=== PATIENT | male | born 1970 | race Two or more races ===

== ENCOUNTER 2025-01-06 14:49 | Emergency (ER) | payer OTHER, SELFPAY ==
[2025-01-06 14:52] VITALS: BP 183/103
[2025-01-06 15:07] LABS: % Basophils 0.4 % (0-2); % Eosinophils 0.8 % (0-6); % Immature Granulocytes 0.1 % (0-0.5); % Lymphocytes 40.5 % (20.5-51.1); % Monocytes 8.3 % (1.7-9.3); % Neutrophils 49.9 % (42.2-75.2); Absolute Eosinophils 0.1 10^3/uL (0-0.7); Absolute Lymphocytes 3.1 10^3/uL (1.2-3.4); Absolute Monocytes 0.6 10^3/uL (0.1-0.6); Absolute Neutrophils 3.8 10^3/uL (1.4-6.5); Hematocrit 45.6 % (39.0-52.0); Hemoglobin 16.6 g/dL (13.0-18.0); Mean Corp Hgb Conc. 36.4 g/dL (33.0-37.0); Mean Corpuscular Hgb 31.1 pg (27.0-31.0); Mean Corpuscular Volume 85.4 fL (80.0-94.0); Nucleated Red Blood Cells % 0 % (-); Platelet Count 261 10^3/uL (130-400); Red Blood Cell Count 5.34 10^6/uL (4.70-6.10); Red Cell Dist. Width 11.7 % (11.5-14.5); White Blood Cell Count 7.6 10^3/uL (4.8-10.8)
[2025-01-06 15:22] LABS: ALT (SGPT) 29 U/L (0-50); AST (SGOT) 25 U/L (17-59); Alkaline Phosphatase 53 U/L (38-126); Blood Urea Nitrogen 15 mg/dl (9-20); Calcium 10.3 mg/dl (8.4-10.2); Carbon Dioxide 24 mmol/L (22-30); Chloride 104 mmol/L (98-107); Glucose 108 mg/dl (70-99); Potassium 4.1 mmol/L (3.5-5.1); Sodium 140 mmol/L (135-145); Total Bilirubin 0.7 mg/dl (0.2-1.3); Total Protein 8.4 g/dl (6.3-8.2); eGFR > 60.00
[2025-01-06 15:33] LABS: Troponin I < 0.012 ng/ml
[2025-01-06 15:42] VITALS: BP 140/92
[2025-01-06 15:43] VITALS: BP 140/92
[2025-01-06 16:00] VITALS: BP 126/77
--- NOTE | 2025-01-06 16:20 | ED.GENMED ---
History of Present Illness
General
Chief Complaint: Chest Pain
Source: patient
Exam Limitations: none
Time Seen by Provider: 01/06/25 16:16
Nursing documentation reviewed up to this point in time: agreed with
History of Present Illness
History of Present Illness:
Note:
CHIEF COMPLAINT(S)
Chest pain
HISTORY OF PRESENT ILLNESS
The patient is a 54-year-old male presenting with chest pain that began approximately one hour prior to arrival. The patient describes the sensation as a squeezing feeling in the chest. The episode began an hour prior to arrival. The patient
believes the episode might be related to consuming a strong coffee today, despite being a regular coffee drinker. He reports associated symptoms of a 'fast heartbeat' and feels that stress might have contributed. He denies syncope but agrees to
having had trouble sleeping since a concussion in September. Upon presentation, his blood pressure was initially elevated at 180 mmHg (diastolic not specified), but subsequently normalized to 126/77 mmHg. The patient reports no significant issues
presently but mentions he is tired from lack of sleep.
ADDITIONAL HISTORY OBTAINED FROM SOURCES OTHER THAN THE PATIENT
According to the previous assessment (not specified by whom), the patient�s blood test and heart monitoring results are currently within normal limits, although there is a plan to repeat the blood test.
CHRONIC MEDICAL CONDITIONS SIGNIFICANTLY AFFECTING CARE
Chronic conditions affecting care: Concussion history leading to insomnia.
SOCIAL DETERMINANTS AFFECTING HEALTH
The patient denies smoking, alcohol, or illicit drug use.
MEDICATIONS
The patient reports taking amantadine, which he has exhausted for the last two weeks, potentially contributing to his inability to sleep.
PHYSICAL EXAM
- Nursing notes reviewed and vital signs reviewed.
- General: The patient is afebrile and in no distress.
- Head, Eyes, Ears, Nose, and Throat: Pupils equal, round, and reactive to light.
- Cardiovascular: S1 and S2 heart sounds are normal; no S3, S4, or murmurs detected.
- Respiratory: Lungs are clear bilaterally with no respiratory distress.
- Abdomen: Soft and non-tender.
- Neurological: Cranial nerves II through XII are intact. No abnormalities reported in motor function.
- Extremities: Normal pulses in all extremities; no edema present.
PLAN
Thoughts and considerations include avoiding caffeine due to its potential aggravation of symptoms and recommendation of melatonin (5 mg) as a sleep aid. Monitoring will continue with plans to repeat blood work in approximately one and a half hours.
DIFFERENTIAL DIAGNOSIS
The Differential Diagnosis includes, in no particular order and is not limited to:
1. Acute coronary syndrome
2. Gastroesophageal reflux disease
3. Anxiety/panic attack
4. Atrial fibrillation or other tachyarrhythmias
5. Concussion-related symptoms
6. Hypertension
7. Caffeine-induced palpitations
8. Sleep deprivation-related symptoms
9. Myocarditis
10. Costochondritis
Note:
CARE-UPDATE
01/06/25 - 18:31
Patient remains asymptomatic with improved blood pressure. Test results, including X-ray, are normal, and repeated troponin tests are negative, reducing concerns for ACS or PE. The patient is stable for discharge and will continue follow-up with
primary care. They have received instructions to avoid caffeine and other stimulants as a precaution.
EKG
My independent EKG interpretation is:
- Heart rate: 96 bpm
- Rhythm: Normal sinus rhythm
- Notable interval: Incomplete right bundle branch block
- UT interval: Normal
- QT interval: Normal
- QTC interval: Normal
- [place]: Normal
Disposition:
ASSESSMENT
Atypical chest pain.
DISPOSITION
Discharged home in good condition with instructions to follow up with primary care.
PLAN
Avoid caffeine and other stimulants as a precaution.
MEDICATION RECONCILIATION
Recommendation of melatonin 5 mg as a sleep aid.
MEDICAL DECISION MAKING
1. Number & Complexity of Problems:
- Chronic conditions affecting care: Concussion history.
- Differential diagnoses considered include: Acute coronary syndrome, gastroesophageal reflux disease, anxiety/panic attack, atrial fibrillation or other tachyarrhythmias, concussion-related symptoms, hypertension, caffeine-induced palpitations,
sleep deprivation-related symptoms, myocarditis, and costochondritis.
2. Data Reviewed:
- Labs and imaging were reviewed, ensuring reassuring results (normal X-ray, negative troponin tests) for decision-making on outpatient management.
3. Risk:
- Consideration of admission/observation was made due to the complexity/risk. However, outpatient management is appropriate based on reassuring work-up, stable vitals, symptom control, and follow-up reliability.
PATHOLOGIES TO CONSIDER
- Acute coronary syndrome (chest pain with risk factors)
- Myocarditis (chest pain with possible inflammatory background)
Past History
Past History
ED Past Medical History: None; Negative Asthma, HTN, Hypercholesterolemia or NIDDM
ED Past Surgical History: None
Social History
Tobacco: Non-smoker
Alcohol: None
Personal:
Living: with family
Phy Exam
Physical Exam
Physical Exam:
.
Scores
Heart Score for Chest Pain Patients
STEMI patient?: No
History: Slightly or Non-Suspicious
ECG: Normal
Age: >45 - <65 years
Risk Factors: No Risk Factors
Troponin: </= Normal Limit
Heart Score for Chest Pain Patients: 1
Heart Score Risk: 2.5% MACE over next 6 weeks
Course
Orders/Labs/Results
Orders:
Orders
01/06/25 14:49
ECG [Electrocardiogram (*1)] Urgent
Reason for Study: Chest Pain
EKG- Treatment ONCE
01/06/25 14:54
CR Chest - 2 Views Urgent
Comment:
Reason For Exam: chest pain
01/06/25 14:59
Complete Blood Count/With Diff Urgent
Comprehensive Metabolic Panel Urgent
Troponin I Urgent
01/06/25 15:01
ECG [Electrocardiogram (*1)] Urgent
Reason for Study: Chest Pain
EKG- Treatment ONCE
01/06/25 17:43
Troponin I Urgent
Abnormal Lab Results
01/06/25
14:59
MCH 31.1 H pg
(27.0-31.0)
Glucose 108 H mg/dl
(70-99)
Calcium 10.3 H mg/dl
(8.4-10.2)
Total Protein 8.4 H g/dl
(6.3-8.2)
01/06/25 14:59
01/06/25 14:59
Vital Signs
Initial and Last Documented VS:
Initial Vital Signs
Temp Pulse Resp BP Pulse Ox
98.0 F 83 20 183/103 99
01/06/25 14:52 01/06/25 14:52 01/06/25 14:52 01/06/25 14:52 01/06/25 14:52
Last Documented Vital Signs
Temp Pulse Resp BP Pulse Ox
98.0 F 63 16 126/77 100
01/06/25 14:52 01/06/25 18:15 01/06/25 18:15 01/06/25 16:00 01/06/25 17:00
*Pulse Oximetry
SaO2: 99
Oxygen Mode of Delivery: Room air
Patient hypoxic: no
*Critical Care Note
Total Time (30-74mins, 75-104mins- exclusive of procedures): Not Applicable
ED Attending Note
-
Portions of this chart may have been created with voice recognition software.� Occasional wrong word or��sound alike� substitutions may have occurred due to the inherent limitations of voice recognition software.
Discharge Plan
Departure
Patient Disposition: Home (Routine Discharge)
Date of Disposition: 01/06/25
Time of Disposition: 18:33
Patient with high blood pressure during this ER visit?: Yes
Condition: Good
Discharge Problem:
Chest pain
Instructions: Chest Pain PCP Follow Up, BLOOD PRESSURE
Referrals:
Christianne Ramirez MD [Family Provider, Internal Medicine] - Call in 1-3 days for appt
Interventions
Interventions:
*General Assessment Last Done: 01/06/25 14:52
Discharge Date and Time
Print Language: [place]
[2025-01-06 18:16] LABS: Troponin I < 0.012 ng/ml
== END 2025-01-06 18:55 | disposition home or self-care (01) ==
LOC: EMR 14:49
PROVIDERS: EMERGENCY PHYSICIAN Emergency Medicine; FAMILY PHYSICIAN Emergency Medicine
DX: R07.89 Other chest pain (principal); G47.00 Insomnia, unspecified; I45.10 Unspecified right bundle-branch block
CPT/HCPCS: 99285; 71046; 80053; 84484; 85025; 93005